=== PATIENT | female | born 1995 | race Caucasian/White ===

== ENCOUNTER 2017-08-29 16:43 | Emergency (ER) | payer OTHER ==
[~2017-08-29] VITALS: Ht 152.4 cm; Wt 52.2 kg
[2017-08-29] MEDS ORDERED: IBUPROFEN TABLET 200 MG TAB PO ONE (17:45)
[2017-08-29] MEDS ORDERED: IBUPROFEN 800 MG (MOTRIN) TAB PO ONE (17:45)
[2017-08-29 18:01] LABS: BILIRUBIN,URINE NEGATIVE (NEGATIVE); CLARITY,URINE CLEAR; COLOR,URINE YELLOW; GLUCOSE, URINE (UA) NEGATIVE (NEGATIVE); KETONES,URINE NEGATIVE (NEGATIVE); LEUKOCYTE ESTERASE ,URINE NEGATIVE (NEGATIVE); NITRITE,URINE NEGATIVE (NEGATIVE); PH,URINE 5 (5-9); PROTEIN,URINE NEGATIVE (NEGATIVE); UROBILINOGEN,URINE NORMAL (NORMAL)
[2017-08-29 18:16] LABS: BACTERIA,URINE TRACE /HPF
--- NOTE | 2017-08-29 18:31 | ED Pediatric Illness ---
HPI-Pediatric Illness General Chief Complaint: -Female Stated Complaint: CRAMPS Nursing Triage Note: PATIENT STATES THAT SHE IS HAVING CRAMPS RELATED TO HER PERIOD. SHE STATES THAT SHE NORMALLY HAS PERIOD CRAMPS BUT IT IS RELIEVED BY 400MG IBUPROFEN. TODAY, SHE TOOK IBUPROFEN AND IT DID NOT HELP SO SHE DECIDED TO COME TO THE ER. Source: patient Exam Limitations: no limitations History of Present Illness Date Seen by Provider: Aug 29, 2017 Time Seen by Provider: 18:27 Initial Comments c/o "period pain" since this afternoon. Pain is crampy and suprapubic in location. Menstrual flow is heavier than usual. Shes used about 5 tampons since period onset this afternoon. Her periods have been a bit heavier than usual for her past 2-3 menstrual periods. No fevers. Today, she does feel a bit lightheaded. Normally her pain is relieved by 400mg ibuprofen and she took that 2 hours [employer] without improvement so she came here. Timing/Duration: 4-6 hours Severity: moderate Allergies and Home Medications Allergies Coded Allergies: fexofenadine (Verified Allergy, Unknown, 08/29/17) guaifenesin (Verified Allergy, Unknown, 08/29/17) pseudoephedrine (Verified Allergy, Unknown, 08/29/17) sulfamethoxazole (Verified Allergy, Unknown, 08/29/17) trimethoprim (Verified Allergy, Unknown, 08/29/17) Constitutional: see HPI EENTM: see HPI Respiratory: no symptoms reported Cardiovascular: no symptoms reported Gastrointestinal: abdominal pain Genitourinary: no symptoms reported Musculoskeletal: no symptoms reported Skin: no symptoms reported PMH-Pediatrics Recent Foreign Travel: No Contact w/other who traveled: No Recent Infectious Disease Expo: No Hospitalization with Isolation: Denies Seasonal Allergies: No Physical Exam-Pediatric Physical Exam Vital Signs Vital Sign - Last 12Hours 08/29/17 17:12 Temp 98.6 Pulse 68 Resp 18 B/P (MAP) 113/82 Capillary Refill : General Appearance: no acute distress, see HPI, active HENT: head inspection normal, fontanelle closed/normal, PERRL Neck: non-tender, full range of motion Respiratory: normal breath sounds, no respiratory distress, no accessory muscle use Cardiovascular: regular rate, rhythm, no murmur Gastrointestinal: normal bowel sounds, non tender Neurologic/Psychiatric: alert, normal mood/affect, oriented x 3 Skin: normal color, warm/dry Progress/Results/Core Measures Results/Orders Lab Results Laboratory Tests Test 08/29/17 17:49 08/29/17 18:58 Range/Units Urine Color YELLOW Urine Clarity CLEAR Urine pH 5 5-9 Urine Specific [place] 1.030 H 1.016-1.022 Urine Protein NEGATIVE NEGATIVE Urine Glucose (UA) NEGATIVE NEGATIVE Urine Ketones NEGATIVE NEGATIVE Urine Nitrite NEGATIVE NEGATIVE Urine Bilirubin NEGATIVE NEGATIVE Urine Urobilinogen NORMAL NORMAL MG/DL Urine Leukocyte Esterase NEGATIVE NEGATIVE Urine RBC (Auto) 4+ H NEGATIVE Urine RBC NONE /HPF Urine WBC NONE /HPF Urine Squamous Epithelial Cells 2-5 /HPF Urine Crystals NONE /LPF Urine Bacteria TRACE /HPF Urine Casts NONE /LPF Urine Mucus SMALL H /LPF Urine Culture Indicated NO White Blood Count 12.0 H 4.3-11.0 10^3/uL Red Blood Count 5.04 4.35-5.85 10^6/uL Hemoglobin 14.6 11.5-16.0 G/DL Hematocrit 42 35-52 % Mean Corpuscular Volume 84 80-99 FL Mean Corpuscular Hemoglobin 29 25-34 PG Mean Corpuscular Hemoglobin Concent 35 32-36 G/DL Red Cell Distribution Width 12.6 10.0-14.5 % Platelet Count 264 130-400 10^3/uL Mean Platelet Volume 9.4 7.4-10.4 FL Neutrophils (%) (Auto) 77 H 42-75 % Lymphocytes (%) (Auto) 19 12-44 % Monocytes (%) (Auto) 4 0-12 % Eosinophils (%) (Auto) 0 0-10 % Basophils (%) (Auto) 0 0-10 % Neutrophils # (Auto) 9.2 H 1.8-7.8 X 10^3 Lymphocytes # (Auto) 2.2 1.0-4.0 X 10^3 Monocytes # (Auto) 0.5 0.0-1.0 X 10^3 Eosinophils # (Auto) 0.0 0.0-0.3 10^3/uL Basophils # (Auto) 0.0 0.0-0.1 10^3/uL My Orders Orders - JAVI GOLD APRN Ua Culture If Indicated (08/29/17 17:39) Urine Bedside (08/29/17 17:39) Ibuprofen Tablet (Motrin Tablet) (08/29/17 17:45) Ibuprofen Tablet (Motrin Tablet) (08/29/17 17:45) Cbc With Automated Diff (08/29/17 18:27) Hydrocodone/Apap 5/325 Tablet (Lortab 5 (08/29/17 19:15) Us Pelvic (Non Ob)48818 (08/29/17 19:06) Medications Given in ED Current Medications Medications Dose Ordered Sig/April Route Start Time Stop Time Status Last Admin Dose Admin Acetaminophen/ Hydrocodone Bitart 1 tab ONCE ONCE PO 08/29/17 19:15 08/29/17 19:16 DC 08/29/17 19:11 1 TAB Ibuprofen 400 mg ONCE ONCE PO 08/29/17 17:45 08/29/17 17:46 DC 08/29/17 17:49 400 MG Vital Signs/I&O Vital Sign - Last 12Hours 08/29/17 17:12 Temp 98.6 Pulse 68 Resp 18 B/P (MAP) 113/82 Point of Care Testing Urine -Bedside: Negative Departure Communication (Admissions) Progress Notes Patient did have a vasovagal type reaction during blood draw with lightheadedness, near syncope but no loss of consciousness, diaphoretic. She was laid flat and symptoms resolved in about one to 2 minutes. Blood pressure 96 /50 1932- patient feels back to normal. We will discharge to home. I did offer ultrasound here and have been called in that the patient would prefer to check with her insurance company to see if this would be covered first so this will wait for the outpatient setting. She'll follow up with her primary care provider or [facility]. Impression Impression: Primary Impression: Menorrhagia Additional Impression: Menorrhalgia Disposition: HOME, SELF-CARE Condition: Stable Departure-Patient Inst. Decision time for Depature: 18:30 Referrals: NO,LOCAL PHYSICIAN (PCP/Family) Primary Care Physician Patient Instructions: Menstrual Cramps (DC) Add. Discharge Instructions: 1. Motrin 800mg every 6-8 hours for pain 2. Use a benadryl 1 tablet every 8 hours as needed to help with cramps 3. Follow up with [employer] this week if pain persists worse than usual to discuss further nonemergent workup. All discharge instructions reviewed with patient and/or family. Voiced understanding. Work/School Note: Work Release Form Date Seen in the Emergency Department: Aug 29, 2017 Return to Work: Aug 31, 2017 JAVI GOLD APRN Aug 29, 2017 18:31
[2017-08-29 19:08] LABS: HEMATOCRIT 42 % (35-52); HEMOGLOBIN 14.6 G/DL (11.5-16.0); RED BLOOD COUNT 5.04 10^6/uL (4.35-5.85)
[2017-08-29 19:09] LABS: BASOPHILS % (AUTO) 0 % (0-10); EOSINOPHILS % (AUTO) 0 % (0-10); LYMPHOCYTES # (AUTO) 2.2 X 10^3 (1.0-4.0); LYMPHOCYTES % (AUTO) 19 % (12-44); MEAN CORPUSCULAR HEMOGLOBIN 29 PG (25-34); MEAN CORPUSCULAR HGB CONC 35 G/DL (32-36); MEAN CORPUSCULAR VOLUME 84 FL (80-99); MEAN PLATELET VOLUME 9.4 FL (7.4-10.4); MONOCYTES # (AUTO) 0.5 X 10^3 (0.0-1.0); MONOCYTES % (AUTO) 4 % (0-12); NEUTROPHILS # (AUTO) 9.2 X 10^3 (1.8-7.8); NEUTROPHILS % (AUTO) 77 % (42-75); PLATELET COUNT 264 10^3/uL (130-400); RED CELL DISTRIBUTION WIDTH 12.6 % (10.0-14.5)
[2017-08-29] MEDS ORDERED: HYDROcodone/APAP 5 MG/325 MG (LORTAB) TAB PO ONE (19:15)
== END 2017-08-29 19:41 | disposition home or self-care (01) ==
LOC: ER 16:46
DX: N92.0 Excessive and frequent menstruation with regular cycle (principal); Z88.2 Allergy status to sulfonamides; Z88.8 Allergy status to other drugs, medicaments and biological substances
CPT/HCPCS: 36415; 81000; 84703; 85025; 99283